=== PATIENT | female | born 1950 | race Caucasian/White ===

== ENCOUNTER 2021-12-14 04:26 | Inpatient (IN) | payer OTHER, BC ==
[2021-12-09 18:55] VITALS: BMI 31.3
[2021-12-14] MEDS ORDERED: SUGAMMADEX SODIUM 200 MG/2 ML VIAL ONE (07:10)
[2021-12-14] MEDS ORDERED: ROCURONIUM BROMIDE 50 MG/5 ML SYRINGE ONE ×3 (07:25→09:30)
[2021-12-14] MEDS ORDERED: SUCCINYLCHOLINE CHLORIDE 200 MG/10 ML SYRINGE ONE ×2 (07:25→09:29)
[2021-12-14] MEDS ORDERED: fentaNYL CITRATE 250 MCG/5 ML VIAL ONE (07:27)
[2021-12-14] MEDS ORDERED: MIDAZOLAM HCL 2 MG/2 ML SINGLE DOSE VIAL ONE ×2 (07:27→07:50)
[2021-12-14] MEDS ORDERED: KETAMINE HCL 200 MG/20 ML VIAL ONE (07:27)
[2021-12-14] MEDS ORDERED: PROPOFOL 20 ML ONE ×2 (07:27)
[2021-12-14] MEDS ORDERED: DEXMEDETOMIDINE HCL 200 MCG/2 ML IVPB ONE (07:33)
[2021-12-14] MEDS ORDERED: ACETAMINOPHEN INJECTION 100 ML IVPB ONE (07:34)
[2021-12-14] MEDS ORDERED: SCOPOLAMINE HYDROBROMIDE 1 PATCH PATCH.TD72 ONE (07:44)
[2021-12-14] MEDS ORDERED: BUPIVACAINE LIPOSOME/PF (EXPAREL) 266 MG/20 ML VIAL ONE (07:50)
[2021-12-14] MEDS ORDERED: BUPIVACAINE HCL/PF 0.5% (5MG/ML) 10 ML VIAL ONE (07:50)
[2021-12-14] MEDS ORDERED: ceFAZolin SODIUM 1 GM VIAL IVPB ONE (09:04)
[2021-12-14] MEDS ORDERED: ceFAZolin SODIUM 1 GM VIAL ONE (09:38)
[2021-12-14] MEDS ORDERED: LIDOCAINE HCL/PF 2% SDV 5ML VIAL ONE (09:38)
[2021-12-14] MEDS ORDERED: KETOROLAC TROMETHAMINE 30 MG/1 ML VIAL ONE (09:43)
[2021-12-14] MEDS: ACETAMINOPHEN 1000 MG/100 ML BAG IVPB SCH ×3 (11:45→23:48)
[2021-12-14] MEDS ORDERED: PROMETHAZINE HCL 25 MG/1 ML VIAL IVPUSH PRN (11:58)
[2021-12-14] MEDS ORDERED: LACTATED RINGERS SOLUTION 1,000 ML IV SCH (12:00)
[2021-12-14] MEDS: SUCRALFATE 1 GM TABLET (FP) PO SCH (17:55)
[2021-12-14] MEDS: PANTOPRAZOLE 40 MG TABLET PO SCH (22:18)
[2021-12-15] MEDS: ACETAMINOPHEN 1000 MG/100 ML BAG IVPB SCH (05:00)
[2021-12-15] MEDS: SUCRALFATE 1 GM TABLET (FP) PO SCH (06:10)
[2021-12-15 07:29] VITALS: TEMP 98.6
[2021-12-15] MEDS: PANTOPRAZOLE 40 MG TABLET PO SCH (09:55)
[2021-12-15 09:59] VITALS: BP 157/79; PULSE 85
[2021-12-15] MEDS ORDERED: ENOXAPARIN NA (PORCINE) 40 MG/0.4 ML DISP.SYRIN SQ SCH (10:00)
[2021-12-15] MEDS ORDERED: HYDROCHLOROTHIAZIDE 25 MG TABLET (FP) PO SCH (10:00)
== END 2021-12-15 11:00 | disposition home or self-care (01) | DRG 328 ==
LOC: J2C 04:26 → EDSTATUS 08:00 → J8W 17:29
PROVIDERS: ADMIT Surgery; ATTEND Surgery
PROC: 0BQT4ZZ Repair Diaphragm, Percutaneous Endoscopic Approach (ICD-10-PCS; 2021-12-14)
PROC: 8E0W8CZ Robotic Assisted Procedure of Trunk Region, Via Natural or Artificial Opening Endoscopic (ICD-10-PCS; 2021-12-14)
PROC: 0DV44ZZ Restriction of Esophagogastric Junction, Percutaneous Endoscopic Approach (ICD-10-PCS; principal; 2021-12-14 08:00)
DX: K44.9 Diaphragmatic hernia without obstruction or gangrene (principal); K21.9 Gastro-esophageal reflux disease without esophagitis
CPT/HCPCS: 71046-TC-FY; 86850; 86900; 86901; 94010; 94760; J0131